=== PATIENT | male | born 1950 | race Caucasian/White ===

== ENCOUNTER 2017-04-18 03:07 | Emergency (ER) | payer OTHER, MEDICARE ==
[~2017-04-18] VITALS: Ht 162.6 cm; Wt 71.7 kg
[~2017-04-18 03:07] MED LIST: LIPITOR20 MG PO; MOTRIN800 MG PO; TOPROL XL100 MG PO; ZITHROMAX Z-PA250 MG PO
[2017-04-18 04:16] LABS: HEMATOCRIT 38.7 % (38.0-50.0); MCH 31.1 PG (29.0-34.0); MCHC 33.3 G/DL (30.0-36.0); MCV 93.3 FL (86-99); MEAN PLAT.VOLUME 10.4 uM^3 (9.0-12.4); PLATELET COUNT 160 K/uL (156-360); RBC DIS.WIDTH-CV 13.8 % (11.8-14.6); RED BLOOD COUNT 4.15 M/uL (4.00-5.50); WHITE BLOOD COUNT 6.2 K/uL (4.1-10.2)
[2017-04-18 04:26] LABS: CHLORIDE 105 mEq/L (99-109); POTASSIUM 3.8 mEq/L (3.7-5.4); SODIUM 140 mEq/L (136-147)
[2017-04-18 04:29] LABS: GLUCOSE 112 mg/dL (70-99)
[2017-04-18 04:30] LABS: ANION GAP 11 MEQ/L (2-14)
[2017-04-18 04:31] LABS: TOTAL BILIRUBIN 0.5 mg/dL (0.0-1.0)
[2017-04-18 04:32] LABS: ALKALINE PHOSPHATASE 93 IU/L (3-129)
[2017-04-18 04:33] LABS: GFR ESTIMATE (CALCULATED) > 59 mL/min/
[2017-04-18 04:34] LABS: UREA NITROGEN (BUN) 8 mg/dL (9-23)
[2017-04-18 04:36] LABS: LIPASE 58 U/L (1.0-51.0)
[2017-04-18 05:27] LABS: ADD MIUA? YES; BILIRUBIN NEGATIVE; BLOOD SMALL; COLOR COLORLESS ((YELLOW)); GLUCOSE (STRIP) NEGATIVE; KETONES NEGATIVE; LEUKOCYTES NEGATIVE; NITRITE NEGATIVE; PROTEIN (STRIP) NEGATIVE; UROBILINOGEN 0.2 MG/DL (0.2-1.0)
[2017-04-18 05:30] LABS: BACTERIA NONE SEEN /HPF; EPITHELIAL CELLS NONE SEEN /HPF; MUCUS NONE SEEN /LPF; RED BLOOD CELLS 0-5 /HPF (0-5); UCUL ADDED? NO; WHITE BLOOD CELLS 0-5 /HPF (0-5)
[2017-04-18 06:22] VITALS: BP 181/89
[2017-04-19] MEDS ORDERED: FLOMAX0.4 MG PO (20:34)
== END 2017-04-18 06:24 | disposition home or self-care (01) ==
LOC: EME 03:07
PROVIDERS: Emergency Medicine
DX: I10 Essential (primary) hypertension (principal); Z48.815 Encounter for surgical aftercare following surgery on the digestive system; E78.5 Hyperlipidemia, unspecified; Z88.2 Allergy status to sulfonamides; Z88.0 Allergy status to penicillin; Z87.891 Personal history of nicotine dependence
CPT/HCPCS: 74177; 80053; 81003; 83605; 83690; 85027; 99281; 99284

== ENCOUNTER 2017-04-19 19:18 | Emergency (ER) | payer OTHER, MEDICARE ==
[~2017-04-19] VITALS: Ht 162.6 cm; Wt 71.9 kg
[2017-04-19 20:10] LABS: ADD MIUA? YES; BILIRUBIN NEGATIVE; BLOOD MODERATE; COLOR STRAW ((YELLOW)); GLUCOSE (STRIP) NEGATIVE; KETONES NEGATIVE; LEUKOCYTES NEGATIVE; NITRITE NEGATIVE; PROTEIN (STRIP) NEGATIVE; SPECIFIC GRAVITY 1.005 (1.000-1.030); UROBILINOGEN 0.2 MG/DL (0.2-1.0)
[2017-04-19 20:15] LABS: BACTERIA RARE /HPF; EPITHELIAL CELLS NONE SEEN /HPF; MUCUS NONE SEEN /LPF; RED BLOOD CELLS 0-5 /HPF (0-5); UCUL ADDED? NO; WHITE BLOOD CELLS 0-5 /HPF (0-5)
[2017-04-19] MEDS ORDERED: FLOMAX0.4 MG PO (20:34)
[2017-04-19 20:37] VITALS: BP 181/94
== END 2017-04-19 20:38 | disposition home or self-care (01) ==
LOC: EME 19:18
PROVIDERS: Emergency Medicine
DX: T83.091A Other mechanical complication of indwelling urethral catheter, initial encounter (principal); Z98.890 Other specified postprocedural states; I10 Essential (primary) hypertension; Z87.891 Personal history of nicotine dependence
CPT/HCPCS: 81003; 87086; 99281; 99284